=== PATIENT | female | born 1930 | race Caucasian/White ===

== ENCOUNTER 2016-07-23 15:00 | Observation (INO) | payer MEDICARE, BC ==
--- NOTE | ~2016-07-23 | CR72 ---
[facility] A Service of [facility] & [facility] / [facility] RADIOLOGY TEXT RESULTS PATIENT: SHAYNA WALKER LOCATION: [facility] 324-01 : 31 UNIT #: [id number] AGE: [address]: Maggi Tellez MD SEX: F ORDER DR: [id number] [facility] [address]. [place], [place] [address] [id number] E MR#: [id number] Acc #: [id number] NAME: SHAYNA WALKER. : 1930 SEX: F STUDY DATE/TIME: 07/23/2016 13:28 UNIT: [facility] ROOM: STUDY DESCRIPTION: CR Chest Single View Portable Attending Physician: Kendra Chavez M.D. Ordering Physician: Kendra Chavez M.D. Primary Care Physician: Generic Doctor Not In System MEDICAL IMAGING REPORT This report is preliminary unless electronic signature is present EXAM Portable chest x-ray, 07/23/2016 HISTORY Short of air. Radiation treatment 2 weeks ago. Weakness legs, arm. History of lung cancer. Chest weakness, unable to stand. Short of air. COMPARISON 03/18/2012 FINDINGS Evidence of prior right mastectomy and breast reconstruction. Multiple surgical clips in the right axillary region. Stable moderate cardiac enlargement. Cardiac pacemaker unchanged. The lungs are well inflated. No dense airspace disease. Increased peribronchial markings centrally particularly on the right which could be a reflection of the patient's reported radiation treatment, prior radiation treatment, bronchitis, or reactive airway disease. No dense airspace disease. The patient's known left apical nodule is again demonstrated. This is presumed to be the site of the patient's stated pulmonary malignancy. Marked degenerative change in the bilateral shoulders. Visualized upper abdomen unremarkable. Dictated by... Chadd Ramon M.D. THIS IS AN ELECTRONICALLY VERIFIED REPORT Chadd Ramon M.D. at 07/24/2016 10:55 PM Alma Rosa TD: 07/23/2016 15:12 JOB #: [id number] MEDICAL IMAGING REPORT [facility] A Service of [facility] & [facility] / [facility] RADIOLOGY TEXT RESULTS PATIENT: SHAYNA WALKER LOCATION: [facility] 324-01 : 31 UNIT #: [id number] AGE: [address]: Maggi Tellez MD SEX: F ORDER DR: Page 1 of 1 COPY
--- NOTE | ~2016-07-23 | HP ---
Unit #: [id number] #: [id number] Patient: SHAYNA WALKER [id number] [address] [address] [id number] I MR#: [id number] NAME: SHAYNA WALKER. ROOM: 71564 Age: 86 Sex: F Admission Date: 07/23/2016 : 1930 Attending Physician: Luan Winter M.D. HISTORY AND PHYSICAL CHIEF COMPLAINT Bilateral knee weakness. HISTORY OF PRESENT ILLNESS The patient is an 86-year-old female with a history of lung cancer, status post radiation two weeks ago, brought to the emergency room complaining of weakness. The patient stated that patient has been having weakness for a month, but the weakness is gradually worsening to the point that she is having trouble getting out of the chair today. The patient denies any nausea, vomiting, fever, chills, or shortness of breath. Patient is being admitted for physical therapy. PAST MEDICAL HISTORY 1. Hypothyroidism. 2. Hyperlipidemia. 3. Hypertension. 4. Diabetes. 5. Chronic kidney disease. 6. Congestive heart failure. 7. Chronic low back pain. PAST SURGICAL HISTORY 1. Right mastectomy for breast cancer with multiple breast reconstructive surgeries. 2. Endometrial cancer requiring hysterectomy. 3. Melanoma excision. 4. Dilatation and curettage. 5. Cholecystectomy. 6. Tonsillectomy. 7. Benign tumor under the arm removed. ALLERGIES None. HOME MEDICATIONS 1. Hydrocodone. 2. Synthroid. 3. Furosemide. 4. K-Dur. 5. Diovan. 6. Coumadin. 7. Januvia. 8. Coreg. 9. Trimpex. Unit #: [id number] #: [id number] Patient: SHAYNA WALKER 10. Flovent. 11. Lantus. 12. Calcium. SOCIAL HISTORY The patient lives with her . She is a lifelong nonsmoker and does not drink alcohol. FAMILY HISTORY Colon, lung, uterine, and skin cancer, along with leukemia. REVIEW OF SYSTEMS A 14-point review of systems was performed and only pertinent positive findings are described above. The remaining are negative. PHYSICAL EXAMINATION GENERAL: Patient is lying in bed not in acute distress. VITAL SIGNS: Temperature 98.2, pulse 76, respiratory rate 16, blood pressure 171/62, and saturating 98% on room air. HEENT: Head atraumatic, normocephalic. Pupils equal, round, and reactive to light and accommodation. Extraocular movements are intact. NECK: Supple. No lymphadenopathy. LUNGS: Clear. HEART: Regular rate and rhythm. ABDOMEN: Soft. Positive bowel sounds. EXTREMITIES: Minimal edema. No cyanosis, no clubbing. NEUROLOGIC: Alert, awake, and oriented. Weakness in the lower extremities. DIAGNOSTIC STUDIES LABORATORY: Glucose 209, BUN 31, creatinine 1.2, sodium 137, potassium 4.1, chloride 102, bicarb 26, calcium 8.9, AST 18, ALT 19, and alkaline phosphatase 166. BNP is 194. INR is 2.7. WBC 9.2, hemoglobin 10.6, hematocrit 32.5, and platelets 168,000. Urinalysis is negative. IMAGING: Chest x-ray shows evidence of prior right mastectomy and breast reconstruction. Multiple surgical clips in the right axillary region. Stable moderate cardiac enlargement. Cardiac pacemaker unchanged. The lungs are well inflated. No dense airspace disease. Increased peribronchial markings centrally particularly on the right which could be a reflection of the patient's reported radiation treatment, prior radiation treatment, bronchitis, or reactive airway disease. No dense airspace disease. The patient's known left apical nodule is again demonstrated. This is presumed to be the site of the patient's stated pulmonary malignancy. Marked degenerative changes in the bilateral shoulders. ASSESSMENT 1. Weakness. 2. History of lung cancer, status post radiation treatment. 3. Atrial fibrillation, on Coumadin. PLAN Admit patient to observation with telemetry. Check x-rays of bilateral knees. Repeat CBC, BMP, and INR at 8 a.m. Continue with low-dose sliding scale. Physical therapy/occupational therapy. Patient can take the own home medications. Further recommendations will follow. Unit #: [id number] #: [id number] Patient: SHAYNA WALKER Dictated by Adriel Reno TD: 07/23/2016 17:55 JOB #: [id number] HISTORY AND PHYSICAL Page 1 of 1 X X HISTORY AND PHYSICAL
--- NOTE | ~2016-07-23 | CR170 ---
[facility] A Service of [facility] RADIOLOGY TEXT RESULTS PATIENT: SHAYNA WALKER LOCATION: [facility] 324-01 : 31 UNIT #: [id number] AGE: [address]: Maggi Tellez MD SEX: F ORDER DR: [id number] [facility] [address] [facility]. [place], [place] [address] [id number] I MR#: [id number] Acc #: [id number] NAME: SHAYNA WALKER. : 1930 SEX: F STUDY DATE/TIME: 07/23/2016 17:21 UNIT: [address] ROOM: [facility] STUDY DESCRIPTION: CR Knee 2 Views Rt Attending Physician: Luan Winter M.D. Ordering Physician: Walter Cerrato M.D. Primary Care Physician: Generic Doctor Not In System MEDICAL IMAGING REPORT This report is preliminary unless electronic signature is present EXAM Right knee, 2 views. DATE OF EXAM 07/23/2016 HISTORY Right knee pain primarily laterally with difficulty walking beginning today. No known injury. FINDINGS 2 views of the right knee demonstrate no fracture. There is degenerative change with marked narrowing of the medial and lateral compartments of the knee and the patellofemoral joint. There is osteophytic spurring extending off the femoral condyles, tibial plateau and the posterior patella. Degenerative sclerosis involving both compartments of the knee. There is a small joint effusion. Atherosclerotic calcification of the popliteal fossa. The bones are osteopenic. IMPRESSION 1. Degenerative change and osteopenia. No evidence of fracture. 2. Small knee joint effusion. Dictated by... Nathanael Delatorre M.D. THIS IS AN ELECTRONICALLY VERIFIED REPORT Nathanael Delatorre M.D. at 07/24/2016 2:19 PM KENTRELL/uyen TD: 07/23/2016 20:04 JOB #: [id number] [facility] A Service of [facility] RADIOLOGY TEXT RESULTS PATIENT: SHAYNA WALKER LOCATION: [facility] 324-01 : 31 UNIT #: [id number] AGE: [address]: Maggi Tellez MD SEX: F ORDER DR: MEDICAL IMAGING REPORT Page 1 of 1 COPY
--- NOTE | ~2016-07-23 | DS ---
Unit #: [id number] #: [id number] Patient: SHAYNA WALKER [id number] [address] [address] [id number] I MR#: [id number] NAME: SHAYNA WALKER. ROOM: 324 Age: 86 Sex: F Admission Date: 07/23/2016 : 1930 Discharge Date: 07/24/2016 Attending Physician: Maggi Tellez M.D. Primary Care Physician: Generic Doctor Not In System DISCHARGE SUMMARY PRINCIPAL DIAGNOSES 1. Generalized muscular weakness. 2. Severe bilateral knee osteoarthritis. 3. Left upper lobe lung nodule, concerning for metastatic renal cell carcinoma versus other, currently undergoing radiation. 4. Generalized severe osteoarthritis. 5. Hypertension. 6. Chronic kidney disease, stage 3, with a baseline creatinine of 1.1. 7. Hypothyroidism. 8. Hyperlipidemia. 9. Diabetes mellitus type 2, insulin requiring, with stable readings. 10. Congestive heart failure, unknown type. 11. Chronic low back pain. 12. Atrial fibrillation, rate controlled, and maintained on anticoagulation. 13. Obesity. CONSULTANTS None. DIAGNOSTIC DATA IMAGING: Bilateral knee x-rays revealing degenerative change and osteopenia. No fractures noted of either knee. Chest x-ray on 07/23/2016 with known left upper lobe nodule. CLINICAL HISTORY/HOSPITAL COURSE Ms. Walker is a very nice 86-year-old female who presented to the emergency department with progressive weakness of several weeks duration. She was having trouble getting out of her chair at home. She tells me she was having difficulty getting her pain medications filled by her physicians and due to her pain she could not get up and she felt progressively weak. The patient was subsequently placed in observation for evaluation. The patient was started back on her home [place] and her pain is better. She was seen by physical therapy and occupational therapy, who do note she is significantly weak and are recommending home health, given observation status. The patient's other chronic conditions all remain stable. DISCHARGE CONDITION Stable. Unit #: [id number] #: [id number] Patient: SHAYNA WALKER DISCHARGE DISPOSITION Discharge to home. DISCHARGE MEDICATIONS 1. Flovent Diskus 50 mcg daily. 2. Coumadin 5 mg Thursday through Thursday, 8 mg on Thursday. 3. Januvia 100 mg daily. 4. Coreg 6.25 mg b.i.d. 5. Lasix 40 mg daily. 6. Diovan 160 mg b.i.d. 7. Lantus 18 units subcutaneously at bedtime. 8. [place] 5/325 mg 0.5-1 table q.8 h. p.r.n. pain, number given 90. 9. Klor-Con 20 mEq p.o. daily. 10. Calcium 600 mg b.i.d. 11. Trimethoprim 100 mg daily. 12. Levothyroxine 150 mcg p.o. daily. DIET The patient was instructed to follow a heart healthy diet. ACTIVITY She can increase her activity as tolerated under the care of physical therapy and occupational therapy at home. FOLLOWUP The patient will follow up with her primary care provider, Ayanna Gill, in one week. Dictated by... Adriel Pitts/luiz TD: 07/26/2016 10:18 JOB #: [id number] CC: Ayanna Gill M.D. DISCHARGE SUMMARY Page 1 of 1 X Maggi Tellez MD DISCHARGE SUMMARY
--- NOTE | ~2016-07-23 | CR169 ---
[facility] A Service of [facility] RADIOLOGY TEXT RESULTS PATIENT: SHAYNA WALKER LOCATION: [facility] 324-01 : 31 UNIT #: [id number] AGE: [address]: Maggi Tellez MD SEX: F ORDER DR: [id number] [facility] [address] [facility]. [place], [place] [address] [id number] I MR#: [id number] Acc #: [id number] NAME: SHAYAN WALKER. : 1930 SEX: F STUDY DATE/TIME: 07/23/2016 17:28 UNIT: [address] ROOM: [facility] STUDY DESCRIPTION: CR Knee 2 Views Lt Attending Physician: Luan Winter M.D. Ordering Physician: Walter Cerrato M.D. Primary Care Physician: Generic Doctor Not In System MEDICAL IMAGING REPORT This report is preliminary unless electronic signature is present EXAM Left knee, 2 views. DATE OF EXAM 07/23/2016 HISTORY Left knee pain primarily laterally with difficulty walking. Symptoms began today with no known injury. FINDINGS 2 views of the left knee demonstrate no acute fracture. Intramedullary sebastian is seen within the visualized portions of the distal left femur. The bones are osteopenic. There is degenerative change with marked narrowing of the medial and lateral compartments of the knee and there is narrowing of the patellofemoral joint. Degenerative sclerosis involving both the medial and lateral compartments. There is a small knee joint effusion. IMPRESSION 1. Degenerative change and osteopenia. No acute fracture involving the left knee. 2. Small knee joint effusion. Dictated by... Nathanael Delatorre M.D. THIS IS AN ELECTRONICALLY VERIFIED REPORT Nathanael Delatorre M.D. at 07/24/2016 2:19 PM KENTRELL/uyen TD: 07/23/2016 20:06 JOB #: [id number] [facility] A Service of [facility] RADIOLOGY TEXT RESULTS PATIENT: SHAYNA WALKER LOCATION: [place] [address]-01 : 31 UNIT #: [id number] AGE: [address]: Maggi Tellez MD SEX: F ORDER DR: MEDICAL IMAGING REPORT Page 1 of 1 COPY
--- NOTE | ~2016-07-23 | EKG ---
PATIENT: SHAYNA WALKER UNIT #: [id number] Ventricular Rate: 62 BPM Atrial Rate: 46 BPM QRS Duration: 166 ms Q-T Interval: 450 ms QTC Calculation(Bezet): 456 ms Calculated R [place]: 99 degrees Calculated T [place]: 11 degrees Diagnosis Line: Ventricular-paced rhythm Diagnosis Line: Abnormal ECG Diagnosis Line: When compared with ECG of 06-JUN-2014 05:33, Diagnosis Line: No significant change was found Diagnosis Line: Confirmed by CARMEN PICHARDO MD ([id number]) on 07/27/2016 Diagnosis Line: 3:49:59 PM INTERPRETING MD: KYLEE MARTÍNEZ
[2016-07-23 13:40] LABS: POC - TROPONIN <0.05 ng/mL (<=0.05)
[2016-07-23 13:45] LABS: BASOPHIL% 0.2 % (0-2.5); EOSINOPHIL# 0.2 X10e3 (0-0.7); EOSINOPHIL% 1.7 % (0.0-7.0); HEMATOCRIT 32.5 % (35.0-45.0); HEMOGLOBIN 10.6 gm/dL (12.0-16.0); LYMPHOCYTE# 1.5 X10e3 (1.0-3.5); LYMPHOCYTE% 16.4 % (17.0-45.0); MEAN CELL VOLUME 86.3 FL (83-96); MEAN CORPUSCULAR HEMOGLOBIN 28.2 PG (28-34); MEAN CORPUSCULAR HGB CONC 32.7 g/dL (30-36); MEAN PLATELET VOLUME 9.2 FL (6.5-11.5); MONOCYTE# 0.9 X10e3 (0-1.0); MONOCYTE% 9.9 % (3.0-12.0); NEUTROPHIL# 6.6 X10e3 (1.5-7.1); NEUTROPHIL% 71.8 % (40-75); PLATELET COUNT 168 X10e3 (140-420); RED BLOOD COUNT 3.77 X10e (3.90-5.30); RED CELL DISTRIBUTION WIDTH 14.5 % (11.0-15.5); WHITE BLOOD COUNT 9.2 X10e3 (4.0-10.5)
[2016-07-23 13:49] LABS: DIFF IND NO
[2016-07-23 14:06] LABS: ALBUMIN SERUM 3.8 g/dL (3.5-5.0); BILIRUBIN, DIRECT 0.1 mg/dL (0.0-0.2); BILIRUBIN,INDIRECT 0.5 mg/dL (0.0-0.9); BILIRUBIN,TOTAL 0.6 mg/dL (0.2-2.0); BUN/CREATININE RATIO 25.83; CALCIUM SERUM 8.9 mg/dL (8.4-10.2); CREATININE SERUM 1.2 mg/dL (0.6-1.4); GLOM FILT RATE Estimated 41.2 mL/min (>60); POTASSIUM 4.1 mmol/L (3.5-5.1); PROTEIN TOTAL SERUM 6.6 g/dL (6.0-8.3)
[2016-07-23 14:09] LABS: INR 2.7; PROTHROMBIN TIME (PATIENT) 28.9 SECONDS (9.6-11.5)
[2016-07-23 14:10] LABS: URINE SOURCE CLEAN CATCH
[2016-07-23 14:18] LABS: URINE APPEARANCE CLEAR; URINE BILIRUBIN NEG (NEG); URINE BLOOD NEG (NEG); URINE COLOR YELLOW; URINE GLUCOSE NEG (NEG); URINE KETONE NEG (NEG); URINE LEUKOCYTE ESTERASE NEG (NEG); URINE NITRATE NEG (NEG); URINE PH 6.5 (5-8); URINE PROTEIN NEG (NEG); URINE SPECIFIC GRAVITY 1.007 (1.003-1.035); URINE UROBILINOGEN 0.2 MG/DL (NEG)
[2016-07-23 14:23] LABS: CULTURE INDICATED? NO
[~2016-07-23 15:00] MED LIST: ACTOS PO; AMARYL PO; ASPIRIN PO; CALCIUM 500 + D1 TAB PO; CENTRUM PO; COREG PO; COREG6.25 MG PO; COUMADIN PO; COUMADIN5 MG PO; CRESTOR10 MG PO; DIOVAN160 MG PO; FLONASE16 GM; FLOVENT DI50 MCG/DIS IH; FUROSEMIDE40 MG PO; HYDROCODON-ACE1 EAC7 PO; JANUVIA PO; K-DUR20 ME1 PO; KLONOPIN PO; KLOR-CON PO; LASIX PO; MIACALCIN4 ML; NATURAL VITA400 UNI2 PO; NEXIUM PO; PROCRIT SUBQ; PROTONIX PO; SYNTHROID PO; THERAPEUTIC M1 UDTA1 PO; TRIMPEX100 MG PO; VITAMIN B12-FO1 EACH PO; VITAMIN D32000 UNI1 PO; ZOCOR PO
[2016-07-23] MEDS ORDERED: JANUVIA100 MG PO (16:22)
[2016-07-23] MEDS ORDERED: LANTUS100 U/ML SUBQ (16:26)
[2016-07-23] MEDS ORDERED: CALCIUM PO (16:27)
[2016-07-24 05:45] LABS: HEMATOCRIT 32.3 % (35.0-45.0); HEMOGLOBIN 10.8 gm/dL (12.0-16.0); MEAN CELL VOLUME 85.9 FL (83-96); MEAN CORPUSCULAR HEMOGLOBIN 28.7 PG (28-34); MEAN CORPUSCULAR HGB CONC 33.4 g/dL (30-36); MEAN PLATELET VOLUME 9.2 FL (6.5-11.5); RED BLOOD COUNT 3.76 X10e (3.90-5.30); RED CELL DISTRIBUTION WIDTH 14.5 % (11.0-15.5); WHITE BLOOD COUNT 7.5 X10e3 (4.0-10.5)
[2016-07-24 06:04] LABS: INR 2.4; PROTHROMBIN TIME (PATIENT) 25.6 SECONDS (9.6-11.5)
[2016-07-24 06:55] LABS: BUN/CREATININE RATIO 27.77; CALCIUM SERUM 9.1 mg/dL (8.4-10.2); CREATININE SERUM 0.9 mg/dL (0.6-1.4); GLOM FILT RATE Estimated 58.3 mL/min (>60); POTASSIUM 3.8 mmol/L (3.5-5.1)
[2016-07-24] MEDS ORDERED: HYDROCODON-ACE1 EAC7 PO (12:39)
== END 2016-07-24 18:06 | disposition home or self-care (01) ==
LOC: CED 15:00 → CEDOF 16:40 → C3A PCU 18:44
PROVIDERS: Emergency Medicine; Internal Medicine
DX: M62.81 Muscle weakness (generalized) (principal); M15.0 Primary generalized (osteo)arthritis; R91.1 Solitary pulmonary nodule; I13.0 Hypertensive heart and chronic kidney disease with heart failure and stage 1 through stage 4 chronic kidney disease, or unspecified chronic kidney disease; E11.22 Type 2 diabetes mellitus with diabetic chronic kidney disease; N18.3 Chronic kidney disease, stage 3 (moderate); I50.9 Heart failure, unspecified; Z79.4 Long term (current) use of insulin; E03.9 Hypothyroidism, unspecified; E78.5 Hyperlipidemia, unspecified; I48.91 Unspecified atrial fibrillation; Z79.01 Long term (current) use of anticoagulants; E66.9 Obesity, unspecified; Z85.118 Personal history of other malignant neoplasm of bronchus and lung; Z92.3 Personal history of irradiation; M85.88 Other specified disorders of bone density and structure, other site; Z80.0 Family history of malignant neoplasm of digestive organs; Z80.1 Family history of malignant neoplasm of trachea, bronchus and lung; Z80.49 Family history of malignant neoplasm of other genital organs; Z80.6 Family history of leukemia; Z90.49 Acquired absence of other specified parts of digestive tract; Z90.710 Acquired absence of both cervix and uterus; Z90.11 Acquired absence of right breast and nipple
CPT/HCPCS: 36415; 51702; 71010; 73560; 80048; 80076; 81003; 82553; 82947; 83880; 84484; 85025; 85027; 85610; 93005; 94760; 97163; 97166; 97530; 99285; G0378; G8978-GP; G8979-GP; G8987-GO; G8988-GO; J1815